=== PATIENT | male | born 1960 | race Caucasian/White ===

== ENCOUNTER 2019-04-21 07:24 | Day surgery (SDC) | payer OTHER ==
[2019-04-20 16:56] LABS: BASOPHILS % (AUTO) 0.9 % (0-1); EOSINOPHILS # (AUTO) 0.3 X10'3 (0-0.9); EOSINOPHILS % (AUTO) 5.9 % (0-6); HEMATOCRIT 46.9 % (42.0-52.0); HEMOGLOBIN 16.3 g/dl (14.0-17.9); LYMPHOCYTES # (AUTO) 1.8 X10'3 (1.1-4.8); LYMPHOCYTES % (AUTO) 30.8 % (21-51); MEAN CORPUSCULAR HEMOGLOBIN 30.1 PG (27.0-31.0); MEAN CORPUSCULAR HGB CONC 34.8 g/dL (33.0-36.5); MEAN CORPUSCULAR VOLUME 86.4 FL (78-98); MEAN PLATELET VOLUME 9.6 FL (7.4-10.4); MONOCYTES # (AUTO) 0.4 X10'3 (0-0.9); MONOCYTES % (AUTO) 7.6 % (2-12); NEUTROPHILS # (AUTO) 3.1 X10'3 (1.8-7.7); NEUTROPHILS % (AUTO) 54.8 % (42-75); PLATELET COUNT 175 X10'3 (140-440); RED BLOOD COUNT 5.43 X10'6 (4.70-6.10); RED CELL DISTRIBUTION WIDTH 13.8 % (11.5-14.5); WHITE BLOOD COUNT 5.7 X10'3 (4.5-11.0)
[2019-04-20 17:09] LABS: ALBUMIN 3.5 G/DL (3.4-5.0); ANION GAP 9 (8-16); BLOOD UREA NITROGEN 23 MG/DL (7-18); BUN/CREATININE RATIO 18.4 (5.4-32.0); CALCIUM 9.3 MG/DL (8.5-10.1); CHLORIDE 101 MMOL/L (99-107); CREATININE 1.25 MG/DL (0.60-1.10); GLUCOSE 404 MG/DL (70-104); SODIUM 135 MMOL/L (135-145); TOTAL CARBON DIOXIDE 25.2 MMOL/L (24-32); eGFR 59 ML/MIN
[2019-04-20 17:11] LABS: PARTIAL THROMBOPLASTIN TIME 27 SECONDS (22-32)
[2019-04-21] VITALS (15 sets, daily range): BP systolic 104–143; BP diastolic 42–100
[~2019-04-21] VITALS: Ht 195.6 cm; Wt 132.5 kg
[2019-04-21] MEDS ORDERED: METO50TA17 PO (07:47)
[2019-04-21] MEDS ORDERED: ASPI-1265 PO (07:47)
[2019-04-21] MEDS ORDERED: METF-436 PO (07:47)
[2019-04-21] MEDS ORDERED: LORazepam 0.5 MG tablet PO PRN (07:50)
[2019-04-21] MEDS ORDERED: acetylcysteine 200 MG/ml 4ml vial PO PRN (07:50)
[2019-04-21] MEDS ORDERED: diphenhydrAMINE 25mg capsule PO PRN (07:50)
[2019-04-21] MEDS ORDERED: sodium bicarbonate (8.4%) inj. 75 ML in dextrose 5% water 500ml 500 ML IV ONE (07:50)
[2019-04-21] MEDS ORDERED: normal saline 1,000 ML IV SCH (07:50)
[2019-04-21] MEDS ORDERED: LIDOcaine/PRILOcaine 5gm cream TP ONE (08:35)
[2019-04-21] MEDS ORDERED: LIDOcaine 1% (10mg/ml)w/preservative injection 20ml MDV ONE (08:38)
[2019-04-21] MEDS ORDERED: midazolam 2 mg/2 ml injection ONE (08:38)
[2019-04-21] MEDS ORDERED: fentaNYL/PF 50MCG/1 ML 2ML syringe ONE (08:38)
[2019-04-21] MEDS ORDERED: nitroGLYCERIN-Tridil 50MG/D5W 250 ML IV ONE (08:38)
[2019-04-21] MEDS ORDERED: iohexol 350MG/ML 100ml bottle IV ONE (08:38)
[2019-04-21] MEDS ORDERED: iohexol 350 MG/ML 50ML vial IV ONE (08:38)
[2019-04-21] MEDS ORDERED: verapamil 2.5 mg/ml inj IV ONE (08:38)
[2019-04-21] MEDS ORDERED: heparin 1,000unit/ml 10ml vial 10 ML ONE (08:38)
== END 2019-04-21 16:05 | disposition home or self-care (01) ==
LOC: SSTAY O 07:24
PROVIDERS: ATTEND Internal Medicine Cardiovascular Disease
DX: R94.39 Abnormal result of other cardiovascular function study (principal); I25.10 Atherosclerotic heart disease of native coronary artery without angina pectoris; E78.5 Hyperlipidemia, unspecified; E11.9 Type 2 diabetes mellitus without complications; I10 Essential (primary) hypertension; I48.0 Paroxysmal atrial fibrillation; I47.1 Supraventricular tachycardia; E66.01 Morbid (severe) obesity due to excess calories; Z68.34 Body mass index [BMI] 34.0-34.9, adult; Z79.899 Other long term (current) drug therapy; Z79.82 Long term (current) use of aspirin; Z79.84 Long term (current) use of oral hypoglycemic drugs; Z86.010 Personal history of colon polyps
CPT/HCPCS: 36415; 80048; 82948; 85025; 85610; 85730; 93005; 93458; 99152; 99153; C1769; C1894; J1644; J2001; J2250; J3010; Q0163; Q9967; A4620; A6258; J3490